=== PATIENT | female | born 1945 | race Caucasian/White ===

== ENCOUNTER → 2018-12-22 | Emergency (ER) | payer OTHER ==
--- OUTSIDE RECORDS SUMMARY | 2018-12-22 14:16 | XMS REPORT | Continuity of Care Document ---
Author Author [place] Address Unknown Phone Unavailable Care Team Providers Care Supervisor Home Restoration Service Name Role Phone [place] [employer] Unavailable Unavailable Problems Problem Status Onset Date Classification Date Reported Comments Source M54.16=RADICULOPATHY, LUMBAR REGION N Active 10/15/2016 [facility] PAIN IN LEFT HIP Active 06/24/2016 [facility] Z12.31 - ENCNTR SCREEN MAMMOGRAM FOR MA Active 04/17/2015 [facility] 793.0; ABN FINDING-SKULL/HEAD 438.89; L Active 10/28/2012 [facility] OSTEOPENIA Active 04/08/2011 [facility] Mammography abnormal3, 4 Active 11/13/2008 Problem 10/23/2016 Data migrated from [employer] on 11/14/14. Data migrated from [employer] on 11/14/14. SYMONE George, [facility], [facility] [place] Arthritis1, 2 Active 10/19/2008 Problem 10/23/2016 Data migrated from [email or web address] on 11/14/14. Data migrated from [employer] on 11/14/14. SYMONE George, [facility], [facility] Osteopenia5, 6 Active Problem 10/23/2016 Data migrated from [employer] on 11/14/14. Data migrated from [employer] on 11/14/14. SYMONE George, [facility], [facility] NONSP ABN FD-SKULL/HEAD Active [facility] LATE EFFECT CV DIS NEC Active [facility] PAIN IN LEFT HIP Active [facility] RADICULOPATHY, LUMBAR REGION Active [facility] Medications Medication Details Route Status Patient Instructions Ordering Provider Order Date Source Omnipaque 300 100 mL, 0 ml/hr, Route: IV, Drug Form: SOLN, ONCE, Start date: 11/01/12 10:20:00, Stop date: 11/01/12 10:20:00 IV No Longer Active Kaiden 11/01/2012 [facility] Allergies, Adverse Reactions, Alerts Substance Category Reaction Severity Reaction type Status Date Reported Comments Source penicillins Assertion Drug allergy Active [facility] [place] penicillins<sup>1</sup> Assertion Drug allergy Active Data migrated from [employer] on 01/11/15. Originally documented as PCN. [facility] Immunizations No Data Provided for This Section Results No Data Provided for This Section Pathology Reports No Data Provided for This Section Diagnostic Reports Report Value Date Source Spine lumbar wo contrast MRI Spine lumbar wo contrast MRI CLINICAL INDICATION: M54.16 Radiculopathy, lumbar region - Per pt c/o lower back pain and left hip/leg pain x 6 months nontraumatic. Hx of right hip replacement. Aj; COMPARISON: None TECHNIQUE: Multiplanar imaging of the lumbar spine was performed without IV contrast utilizing T1 and T2 weighted sequences. FINDINGS: Retroperitoneum/Soft tissues: No significant abnormality is noted. Vertebral bodies and Alignment: 5 non-rib bearing lumbar type vertebrae are presumed. Multiple hemangiomas are noted in the lumbar spine and sacrum. Vertebral bodies demonstrate appropriate height and otherwise normal signal on T1 and T2 weighted sequences. Lower thoracic Cord: The conus medullaris demonstrates normal morphology and terminates at approximately T12-L1 level. T12-L1 level: No significant abnormality. L1-L2 level: No significant abnormality. L2-L3 level: Mild disc desiccation, diffuse disc bulge and mild facet arthrosis noted. Mild bilateral foraminal stenosis. L3-L4 level: Disc desiccation, diffuse disc bulge and facet arthrosis is noted. There is qaal-mu-goumoaly bilateral foraminal stenosis mildly worse on the left. L4-L5 level: Grade 1 anterolisthesis, disc desiccation, mild diffuse disc bulge, facet arthrosis and mild ligamentous hypertrophy is present. Combination of above results in moderate central canal stenosis and moderate left foraminal stenosis. Mild right foraminal stenosis. L5-S1 level: Mild diffuse disc bulge and facet arthrosis. No significant central canal or foraminal stenosis. IMPRESSION: Combination of grade 1 anterolisthesis, disc disease, facet arthrosis and ligamentous hypertrophy results in moderate central canal stenosis at L4-L5 level. Moderate left foraminal and mild right foraminal stenosis is also noted at this level Mild disc disease and facet arthrosis is present at L2-L3 and L3-L4 levels resulting in hhke-yz-cxgtatbf foraminal stenosis. No focal disc herniation or any significant central canal stenosis is noted at either level. SL: [id number] 10/20/2016 [facility] Hip 2/3 views uni DX Patient Name: CHECO MCINTYRE : 1945; Age: 71 years y/o Female MR: [id number] * LEFT HIP, 2 views History: Injury, trauma to left hip. Technique: Frontal neutral and frog-leg images of the left hip were obtained. FINDINGS: There is no evidence of fracture, dislocation, or acute change. The joint space is well-maintained. There are no degenerative changes or other significant osseous abnormalities. IMPRESSION: 1. Negative left hip. SL: [id number] 06/24/2016 [facility] Digital Mammo Screening Arian MA - DIGITAL MAMMO SCREENING ARIAN AL BILATERAL DIGITAL SCREENING MAMMOGRAM WITH CAD: 05/23/2016 CLINICAL: Routine. Current study was evaluated with a Computer Aided Detection (CAD) system. Comparison is made to exams dated: 04/25/2015 mammogram - [facility], 04/07/2014 mammogram - [facility], 03/29/2013 mammogram, 03/11/2012 mammogram and 11/19/2010 mammogram - [facility]. The tissue of both breasts is heterogeneously dense, which could obscure detection of small masses. There are benign vascular calcifications and calcifications in both breasts. No significant masses, calcifications, or other findings are seen in either breast. There has been no significant interval change. IMPRESSION: BENIGN There is no mammographic evidence of malignancy. A 1 year screening mammogram is recommended. Professional services are provided by the [facility] [place] [facility]. Emma perez/kassy:05/27/2016 10:17:53 Agricultural Education Instructor: Harika RICH(R)(M), [facility] This exam was dictated and interpreted by [id number] for AVELINO Wagner 15. letter sent: Normal exam Mammogram BI-RADS: 2 Benign 05/23/2016 [facility] Bone Density DXA [employer] MA - Bone Density [employer] MA BONE DENSITY EVALUATION: 04/25/2015 CLINICAL DATA: Post menopausal. COMPARISON: 03/29/2013 Left total femur area using a Hologic unit from [facility] with reported medium fracture risk, BMD of 0.694g/cm2, T-score of -2.00 and Z- score of -0.70. 03/29/2013 Left femur neck using a Hologic unit from [facility] with reported medium fracture risk, BMD of 0.588g/cm2, T-score of -2.40 and Z- score of -0.70. 03/29/2013 AP L1-L4 region of spine using a Hologic unit from [facility] with reported medium fracture risk, BMD of 0.781g/cm2, T-score of -2.40 and Z-score of -0.50. FINDINGS: Bone density evaluation was performed 04/25/2015 on the AP L1-L4 region of spine using a Hologic unit. The BMD average for the exam is 0.791 g/cm2. The T-score is -2.30 and the Z-score is -0.20. Since the previous similar exam of 03/29/2013, there has been a +0.010 or +1.3% change in the BMD value which represents no significant interval change in bone density. This matches the World Health Organization's criteria for osteopenia and places the patient at a medium risk for fracture. An additional bone density evaluation was performed 04/25/2015 on the left femur neck using a Hologic unit. The BMD average for the exam is 0.550 g/cm2. The T- score is -2.70 and the Z-score is -0.90. Since the previous similar exam of 03/29/2013, there has been a -0.038 or -6.5% change in the BMD value which represents no significant interval change in bone density. This matches the World Health Organization's criteria for osteoporosis and places the patient at a high risk for fracture. An additional bone density evaluation was performed 04/25/2015 on the left total femur area using a Hologic unit. The BMD average for the exam is 0.711 g/cm2. The T-score is -1.90 and the Z-score is -0.40. Since the previous similar exam of 03/29/2013, there has been a +0.017 or +2.4% change in the BMD value which represents no significant interval change in bone density. This matches the World Health Organization's criteria for osteopenia and places the patient at a medium risk for fracture. IMPRESSION: OSTEOPOROSIS Patient is at high risk for fracture. This exam was dictated and interpreted by [id number] for AVELINO Wagner. Vamshi Cralson M.D. /penrad:04/27/2015 11:50:56 Agricultural Education Instructor: Naty RICH (R M) [facility] 04/25/2015 [facility] Digital Mammo Screen Arian MA w kalie - DIGITAL MAMMO SCREEN ARIAN MA W KALIE BILATERAL DIGITAL SCREENING MAMMOGRAM 3D/2D WITH CAD: 04/25/2015 CLINICAL: Routine. 2D digital mammographic images and 3D digital tomosynthesis images were obtained in the CC and MLO projections. Current study was evaluated with a Computer Aided Detection (CAD) system. Comparison is made to exams dated: 04/07/2014 mammogram - [facility], 03/29/2013 mammogram, 03/11/2012 mammogram, 11/19/2010 mammogram, 11/13/2009 mammogram and 11/14/2008 mammogram - [facility]. There are scattered fibroglandular densities in both breasts. There are benign vascular calcifications and calcifications in both breasts. No significant masses, calcifications, or other findings are seen in either breast. There has been no significant interval change. IMPRESSION: BENIGN There is no mammographic evidence of malignancy. A 1 year screening mammogram is recommended. Vamshi Carlson M.D. /penrad:04/27/2015 09:20:29 Agricultural Education Instructor: Naty RICH (R)(Jose) [facility] This exam was dictated and interpreted by [id number] for AVELINO Wagner. letter sent: Normal exam Mammogram BI-RADS: 2 Benign 04/25/2015 [facility]stein Head/Neck CTA CTA HEAD and NECK CLINICAL INFORMATION: syncope/ See Clinic Indication TECHNIQUE: Contiguous thin section images of the neck and brain were obtained utilizing a multidetector scanner after uneventful administration of nonionic iodinated contrast medium. Surface rendered images generated on an independent workstation and computer reformatted sagittal and coronal images are provided. Postprocessing 3-D reformatting and reconstruction images were also obtained. FINDINGS: NECK CTA: Aortic arch: Aorta demonstrates normal morphology The great vessels originate from the aortic arch in the standard configuration. No origin stenosis is identified. The vertebral arteries are patent bilaterally. Carotid arteries: The cervical common carotid arteries and cervical internal carotid arteries have a normal course caliber and contour. No stenosis of the carotid bifurcations or hemodynamically significant stenosis of the internal carotid arteries is present. Vertebral arteries: The vertebral arteries are codominant. They have a normal course, caliber and contour. Head CTA: The anterior and posterior circulations have a normal appearance. Origins and proximal portions of the ACAs and MCAs demonstrate normal morphology. No gross aneurysm noted in the anterior circulation. The right SHELLFISH HARVESTER arises from the right ICA, normal variant. Left SHELLFISH HARVESTER, basilar artery, SCAs and vertebral arteries demonstrate normal morphology and enhancement. No gross aneurysm is noted in the posterior circulation. Venous opacification in the head and neck is grossly normal. Alignment of the cervical spine is within normal limits. Mild spondylosis is present in the cervical spine degenerative disc disease particularly at C5-C6 and C6-C7 levels. IMPRESSION: No significant abnormality is noted on the CT arteriogram of the neck and brain. SL:13 11/01/2012 [facility] Consultation Notes No Data Provided for This Section Discharge Summaries No Data Provided for This Section History and Physicals No Data Provided for This Section Vital Signs Vital Sign Value Date Comments Source Height 62 11/01/2012 [facility] Weight 125 [lb_ap] 11/01/2012 [facility] Encounters Location Location Details Encounter Type Encounter Number Reason For Visit Attending Provider ADM Date DC Date Status Source [facility] Outpatient [id number] OSTEOPENIA THANH STAN 04/14/2011 Active [facility] Outpatient [id number] 793.0; ABN FINDING-SKULL/HEAD 438.89; LATE EFFECT OF C GERALDINE FAUSTIN 11/01/2012 Active [facility] [place] [facility] [id number] [facility] 04/07/2014 [facility]08[facility] [place] [facility] [id number] [facility] 04/25/2015 04/26/2015 [facility] [place] [facility] [id number] [facility] 05/23/2016 05/24/2016 [facility] Outpatient [id number] Basem Hamid 06/24/2016 06/25/2016 [facility] Outpatient [id number] Basem Hamid 10/20/2016 10/21/2016 [facility] Procedures No Data Provided for This Section Assessment and Plan No Data Provided for This Section Plan of Care No Data Provided for This Section Social History Social History Date Source No data available for this section 10/21/2016 [facility] No data available for this section 05/24/2016 [facility] No data available for this section 04/26/2015 [facility] Family History No Data Provided for This Section Advance Directives No Data Provided for This Section Functional Status No Data Provided for This Section
--- OUTSIDE RECORDS SUMMARY | 2018-12-22 14:17 | XMS REPORT | Summary of Care ---
Author Organization Unknown Address Unknown Phone Unavailable Encounter HQ Encntr_alipeter([facility]) [id number] Date(s): 04/07/14 - 04/07/14 [facility] Outpatient Imaging [place] [address] [place], [place] [address] Discharge Disposition: Home Physician Attending: Esteban Felton MD Reason for Visit V76.12 - SCREEN MAMMOGRA Problem List No data available for this section Allergies, Adverse Reactions, Alerts Substance Reaction Severity Status penicillins Active Medications No data available for this section Medications Administered During Your Visit No data available for this section Immunizations No data available for this section
--- OUTSIDE RECORDS SUMMARY | 2018-12-22 14:17 | XMS REPORT | CCD ---
Author Author Auto Generated Organization [facility] Address Unknown Phone Unavailable Care Team Providers Care Cad Specialist Name Role Phone ChartServer, Login CP Unavailable Toshia Pham RP Vivienne Martinez CP [phone] Esteban Felton CP Allergies, Adverse Reactions, Alerts Substance Reaction Status NKDA ?? Active
--- OUTSIDE RECORDS SUMMARY | 2018-12-22 14:17 | XMS REPORT | CCD ---
Author Author Auto Generated Organization [facility] Address Unknown Phone Unavailable Care Team Providers Care Clinical Fellow Name Role Phone KaidenMarisabel kimJosietanesha Rosa RP Allergies, Adverse Reactions, Alerts Substance Reaction Status penicillins Active Medications Medication Instructions Start Date End Date Status Omnipaque 300 100 mL, 0 ml/hr, Route: IV, Drug 11/01/2012 11/01/2012 Completed Form: OLIVIA GREEN, Start date: 11/01/12 10:20:00, Stop date: 11/01/12 10:20:00 Vital Signs Most recent to oldest [Reference Range]: 1 Height 62 inch (11/01/2012 10:19:01) Weight 125 lb (11/01/2012 10:19:01)
--- OUTSIDE RECORDS SUMMARY | 2018-12-22 14:17 | XMS REPORT | Summary of Care ---
Author Author [facility] Outpatient Imaging [facility] [place] Address Unknown Phone Unavailable Encounter HQ Kaleighntr_alipeter([facility]) [id number] Date(s): 04/25/15 - 04/25/15 [facility] [place] [address] [place], [place] [address]- [phone] Discharge Disposition: Home Attending Physician: Esteban Felton MD Vital Signs No data available for this section Problem List Condition Effective Dates Status Health Status Informant Arthritis1, 2 10/19/08 Active Mammography 11/13/08 Active abnormal3, 4 Osteopenia5, 6 Active 1Data migrated from [employer] on 11/14/14. 2Data migrated from [employer] on 11/14/14. 3Data migrated from [employer] on 11/14/14. 4Data migrated from [employer] on 11/14/14. 5Data migrated from [employer] on 11/14/14. 6Data migrated from [employer] on 11/14/14. Allergies, Adverse Reactions, Alerts Substance Reaction Severity Status penicillins1 Active 1Data migrated from [employer] on 01/11/15. Originally documented as PCN. Medications No data available for this section Results No data available for this section Immunizations No data available for this section Procedures No data available for this section Social History No data available for this section Assessment and Plan No data available for this section
--- OUTSIDE RECORDS SUMMARY | 2018-12-22 14:17 | XMS REPORT | Summary of Care ---
Author Author [facility] Outpatient Imaging [facility] [place] Address Unknown Phone Unavailable Encounter HQ Encntr_alipeter([facility]) [id number] Date(s): 05/23/16 - 05/23/16 [facility] Outpatient [address] [address]- [phone] Discharge Disposition: Home or Self Care Attending Physician: Esteabn Felton MD Vital Signs No data available [...]
--- OUTSIDE RECORDS SUMMARY | 2018-12-22 14:17 | XMS REPORT | Summary of Care ---
Author Author [facility] Organization [facility] Address Unknown Phone Unavailable Encounter HQ Kaleighntr_karli([facility]) [id number] Date(s): 06/24/16 - 06/24/16 [facility] [address] [place] [address]- [phone] Discharge Disposition: Home or Self Care Attending Physician: Gretel Chandra MD Admitting Physician: Gretel Chandra MD Vital Signs No data available for [...]
--- OUTSIDE RECORDS SUMMARY | 2018-12-22 14:17 | XMS REPORT | Summary of Care ---
Author Author [facility] Organization [facility] Address Unknown Phone Unavailable Encounter HQ Kaleighntr_karli([facility]) [id number] Date(s): 10/20/16 - 10/20/16 [facility] [address] [place] [address]- Discharge Disposition: Home or Self Care Attending Physician: Gretel Chandra MD Referring Physician: Gretel Chandra MD Vital Signs No [...]
== END | disposition left against medical advice (07) ==
LOC: FSED 14:13
DX: M79.605 Pain in left leg (principal)